=== PATIENT | male | born 1970 | race Caucasian/White ===

== ENCOUNTER → 2017-08-14 | Outpatient (CLI) | payer BC ==
[~2017-08-14] MED LIST: FLEXERIL10 MG PO; HYDROCODONE1 TABLET PO; KEFLEX 500MG.500 MG PO; NOMEDS XX; PENICILLIN-VK500 MG PO; PREDNISONE 20MG20 MG PO
--- NOTE | 2017-08-14 14:31 | RADIOLOGY REPORT PS360 ---
LOWER LEG-RT HISTORY: PAIN IN RT ABDALLA, INJURY, HEMATOMA ORDERING PHYSICIAN: SHAILA CALDERON APRN PATIENT AGE: 47 years COMPARISON: None FINDINGS: No fracture or dislocation. No soft tissue abnormalities. IMPRESSION: Negative right tib-fib
== END ==
LOC: RAD 12:52
DX: M79.661 Pain in right lower leg (principal); T14.90 Injury, unspecified; T14.8 Other injury of unspecified body region